=== PATIENT | female | born 1995 | race Caucasian/White ===

== ENCOUNTER 2016-10-14 02:15 | Emergency (ER) | payer SELFPAY ==
[2016-10-14 02:15] VITALS: BMI 26.2
[2016-10-14 02:32] VITALS: BP 125/71; PULSE 74; RESP 16; TEMP 98.1; O2SAT 100
[2016-10-14] MEDS ORDERED: Sodium Chloride 0.9% 1,000 ML IV STA (02:44)
--- NOTE | 2016-10-14 03:18 | ED PDOC ---
HPI: Abdomen Time Seen by Provider: 10/14/16 02:29 Chief Complaint (Nursing): Abdominal Pain History Per: Patient History/Exam Limitations: no limitations Onset/Duration Of Symptoms: Hrs Outside of [place] travel?: No Current Symptoms Are (Timing): Still Present Location Of Pain/Discomfort: Epigastric Quality Of Discomfort: Unable To Describe Additional Complaint(s): @ 4-8 wks (pt. unsure of last period) p/w epigastric pain and 3 episodes of vomiting, states she feels pain underneath ribs. 3 episodes of NBNB vomiting (food colored). normal stools. No lower abd pain, no fevers. No VB/ VD. Past Medical History Reviewed: Historical Data, Nursing Documentation, Vital Signs Vital Signs: Last Vital Signs Temp 98.1 F 10/14/16 02:27 Pulse 74 10/14/16 02:27 Resp 16 10/14/16 02:27 BP 125/71 10/14/16 02:27 Pulse Ox 100 10/14/16 03:19 - Medical History PMH: No Chronic Diseases, Kidney Stones, Chronic Kidney Disease - Family History Family History: States: No Known Family Hx - Immunization History Hx Tetanus Toxoid Vaccination: Yes Hx Influenza Vaccination: No Hx Pneumococcal Vaccination: No - Home Medications Home Medications: Ambulatory Orders Medication Instructions Recorded Nitrofurantoin Macrocrystals 100 mg PO BID #10 cap 02/13/13 [Macrobid] Phenazopyridine Hydrochlorid2 200 mg PO TID PRN #15 tab 07/06/14 [Pyridium] Sulfamethoxazole/Trimethopri 1 tab PO BID #10 tab 07/06/14 [Septra Ds 800 mg-160 mg] Amoxicillin 500 mg PO BID #14 capsule 11/09/15 Nitrofurantoin Macrocrystals 100 mg PO BID #14 cap 11/09/15 [Macrobid] - Allergies Allergies/Adverse Reactions: Allergies Allergy/AdvReac Type Severity Reaction Status Date / Time No Known Allergies Allergy Verified 07/06/14 00:10 Review of Systems ROS Statement: Except As Marked, All Systems Reviewed And Found Negative Gastrointestinal: Positive for: Nausea, Vomiting, Abdominal Pain Physical Exam - Reviewed Nursing Documentation Reviewed: Yes - Physical Exam Appears: Positive for: Well, Non-toxic, No Acute Distress Head Exam: Positive for: ATRAUMATIC, NORMAL INSPECTION, NORMOCEPHALIC Skin: Positive for: Normal Color, Warm, DRY Eye Exam: Positive for: EOMI, Normal appearance, PERRL ENT: Positive for: Normal ENT Inspection Neck: Positive for: Normal, Painless ROM Cardiovascular/Chest: Positive for: Regular Rate, Rhythm Respiratory: Positive for: CNT, Normal Breath Sounds Gastrointestinal/Abdominal: Positive for: Normal Exam, Bowel Sounds, Soft Back: Positive for: Normal Inspection Extremity: Positive for: Normal ROM Neurologic/Psych: Positive for: Alert, Oriented - Laboratory Results Result Diagrams: 10/14/16 03:00 10/14/16 03:00 - ECG O2 Sat by Pulse Oximetry: 100 Pulse Ox Interpretation: Normal Medical Decision Making Medical Decision Making: Preg, abd pain. Bedside sono shows IUP (patient explained that this is unofficial and will need confirmation from OB). Will check labs, give fluids/ reglan and reassess. 5AM: Labs wnl, told pt. to f/u in [facility] in 2 days for repeat testing. Return precautions given. Disposition - Clinical Impression Clinical Impression: Abdominal pain during - Disposition Referrals: [facility] [Outside] Disposition Time: 05:00 Condition: STABLE Additional Instructions: Followup in the clinic in 2 days for repeat blood testing and ultrasound. Instructions: Abdominal Pain in (ED)
[2016-10-14 03:27] LABS: BASO % 0.4 % (0.0-2.0); EOS % 0.2 % (0.0-4.0); HEMATOCRIT 37.8 % (34.0-47.0); LYMPH # 1.9 K/uL (1.0-4.3); LYMPH % 17.1 % (20.0-40.0); MEAN CELL VOLUME 81.5 fl (81.0-99.0); MEAN CORPUSCULAR HEMOGLOBIN 27.2 pg (27.0-31.0); MEAN CORPUSCULAR HGB CONC 33.4 g/dL (33.0-37.0); MEAN PLATELET VOLUME 10.1 fl (7.2-11.7); MONO # 0.8 K/uL (0.0-0.8); MONO % 6.9 % (0.0-10.0); NEUT # 8.3 K/uL (1.8-7.0); NEUT % 75.4 % (50.0-75.0); NRBC % 0.1 % (0.0-0.0); RBC URINE 4 /hpf (0-3); RED CELL DISTRIBUTION WIDTH 13.2 % (11.5-14.5); URINE BILIRUBIN NEGATIVE (NEGATIVE); URINE BLOOD NEGATIVE (NEGATIVE); URINE COLOR YELLOW (YELLOW); URINE GLUCOSE (UA) NEG (Normal); URINE KETONE NEGATIVE (NEGATIVE); URINE LEUKOCYTE ESTERASE SMALL Leu/uL (Negative); URINE PROTEIN NEGATIVE (NEGATIVE); URINE UROBILINOGEN 0.2-1.0 mg/dL (0.2-1.0); WBC URINE 1 /hpf (0-5)
[2016-10-14 03:36] LABS: BLOOD UREA NITROGEN 13 mg/dl (7-17); CALCIUM 9.5 mg/dL (8.4-10.2); CARBON DIOXIDE 23 mmol/L (22-30); CHLORIDE 106 mmol/L (98-107); GFR AFRICAN-AMERICAN > 60; GLUCOSE,RANDOM 78 mg/dL (65-105); POTASSIUM 3.8 MMOL/L (3.6-5.0); SODIUM 142 mmol/l (132-148)
== END 2016-10-14 04:30 | disposition home or self-care (01) ==
LOC: H.ER 02:15
DX: O99.89 Other specified diseases and conditions complicating pregnancy, childbirth and the puerperium (principal); O21.9 Vomiting of pregnancy, unspecified
CPT/HCPCS: 80048; 81003; 81025; 84702; 85025; 96361; 96374; 99282; J2765; J7040

== ENCOUNTER 2016-10-21 21:28 | Emergency (ER) | payer SELFPAY ==
[2016-10-21 21:33] VITALS: BMI 26.2
[2016-10-21 21:45] VITALS: RESP 16; TEMP 98.1
--- NOTE | 2016-10-21 21:57 | ED PDOC ---
HPI: Female Pain Time Seen by Provider: 10/21/16 21:55 Chief Complaint (Nursing): Female Genitourinary Chief Complaint (Provider): with vaginal spotting History Per: Patient Additional Complaint(s): 21-year-old female presents to emergency department with vaginal spotting that started yesterday. Patient is currently 7 weeks approximately. She denies any abdominal pain. Patient is also having thick yellow discharge for the past 2 days and is concerned about possible STD. She was treated one month ago for gonorrhea and chlamydia and her symptoms did go away but she is having similar symptoms again. Patient has had unprotected intercourse since previous exposure. She denies any fever or chills. Patient is (had 1 elective AB). Past Medical History Reviewed: Historical Data, Nursing Documentation, Vital Signs Vital Signs: Last Vital Signs Temp 98.1 F 10/21/16 21:40 Pulse 81 10/21/16 21:40 Resp 16 10/21/16 21:40 BP 115/60 10/21/16 21:40 Pulse Ox 99 10/21/16 21:40 - Medical History PMH: Kidney Stones - Surgical History Other surgeries: elective - Family History Family History: States: No Known Family Hx - Living Arrangements Living Arrangements: With Family - Social History Current smoker - smoking cessation education provided: No Alcohol: None Drugs: Denies - Home Medications Home Medications: Ambulatory Orders Medication Instructions Recorded Nitrofurantoin Macrocrystals 100 mg PO BID #10 cap 02/13/13 [Macrobid] Phenazopyridine Hydrochlorid2 200 mg PO TID PRN #15 tab 07/06/14 [Pyridium] Sulfamethoxazole/Trimethopri 1 tab PO BID #10 tab 07/06/14 [Septra Ds 800 mg-160 mg] Amoxicillin 500 mg PO BID #14 capsule 11/09/15 Nitrofurantoin Macrocrystals 100 mg PO BID #14 cap 11/09/15 [Macrobid] Nitrofurantoin Macrocrystals 100 mg PO BID #14 cap 10/22/16 [Macrobid] - Allergies Allergies/Adverse Reactions: Allergies Allergy/AdvReac Type Severity Reaction Status Date / Time No Known Allergies Allergy Verified 07/06/14 00:10 Review of Systems ROS Statement: Except As Marked, All Systems Reviewed And Found Negative Constitutional: Negative for: Fever, Chills Cardiovascular: Negative for: Chest Pain Respiratory: Negative for: Cough Gastrointestinal: Negative for: Nausea, Vomiting, Abdominal Pain, Diarrhea Genitourinary Female: Positive for: Vaginal Discharge, Vaginal Bleeding ( spotting), Other (approx 7 weeks ). Negative for: Dysuria, Frequency, Hematuria, Pelvic Pain Physical Exam - Reviewed Nursing Documentation Reviewed: Yes Vital Signs Reviewed: Yes - Physical Exam Appears: Positive for: Well, Non-toxic, No Acute Distress Head Exam: Positive for: ATRAUMATIC, NORMAL INSPECTION, NORMOCEPHALIC Neck: Positive for: Painless ROM Cardiovascular/Chest: Positive for: Regular Rate, Rhythm Respiratory: Positive for: Normal Breath Sounds. Negative for: Respiratory Distress Gastrointestinal/Abdominal: Positive for: Normal Exam, Soft. Negative for: Tenderness, Distended, Guarding, Rebound Back: Negative for: L CVA Tenderness, R CVA Tenderness Extremity: Negative for: Pedal Edema Neurologic/Psych: Positive for: Alert, Oriented - Laboratory Results Result Diagrams: 10/21/16 22:54 10/21/16 22:54 Urine POC: Positive Urine dip results: Positive for: Leukocyte Esterase (small). Negative for: Blood, Nitrate, Ketones, Glucose, Bilirubin, Protein - ECG O2 Sat by Pulse Oximetry: 99 Pulse Ox Interpretation: Normal - Other Rad OB TV US X-Ray: Read By Radiologist X-Ray Interpretation: see below Medical Decision Making Medical Decision Makin year female with vaginal discharge and spotting Plan: CBC CMP Beta quant UA and culture CHL and GC cultures OB TV US Empiric treatment for CHL and GC with 1 gram PO zithroimax and 250 gm IM rocephin US: FINDINGS: Gestation: A single intrauterine gestational sac is identified with a mean gestational sac size of 1.6 cm, corresponding to an approximate gestational age of 5 weeks and 6 days. A pole is detected, with the crown- rump length of 2.9 mm, corresponding to an approximate gestational age of 5 weeks and 6 days. cardiac activity is identified at a rate of 142 beats per minute. Placenta/amniotic fluid: Cannot be adequately evaluated due to the early gestational age. Uterus/cervix: As above. Ovaries: An anechoic focus is detected within the right ovary, measuring 18 mm in greatest dimension. The left ovary is unremarkable in echogenicity and size measuring 18 x 3.2 x 19 mm. Free fluid: No free fluid. IMPRESSION: Single intrauterine gestation with approximate gestational age of 5 weeks and 6 days. cardiac activity is identified. Right ovarian cyst. Patient aware of all diagnostic testing results, all questions answered. Blood type is A negative, rhogam given. Rx given for macrobid. Patient was referred to women's clinic for follow up. Disposition - Clinical Impression Clinical Impression: UTI (urinary tract infection), Vaginal discharge, STD (female), Threatened - Patient ED Disposition Is Patient to be Admitted: No Counseled Patient/Family Regarding: Studies Performed, Diagnosis, Need For Followup, Rx Given - Disposition Referrals: [facility] [Outside] Disposition: Routine/Home Disposition Time: 00:53 Condition: STABLE Additional Instructions: Take rx meds as directed. Refrain from intercourse until symptoms resolve. Follow up with women's clinic in 2-3 days. Prescriptions: Nitrofurantoin Macrocrystals [Macrobid] 100 mg PO BID #14 cap Instructions: Threatened Miscarriage (ED), Sexually Transmitted Diseases (ED), Urinary Tract Infection in Women (ED) Results - Lab Results Lab Results: 10/21/16 10/21/16 10/21/16 22:54 22:54 22:07 WBC 11.4 H RBC 4.46 Hgb 11.9 L Hct 36.5 MCV 81.7 MCH 26.6 L MCHC 32.6 L RDW 13.2 Plt Count 220 MPV 9.7 Neut % (Auto) 69.2 Lymph % (Auto) 21.8 [place] % (Auto) 8.0 Eos % (Auto) 0.4 Baso % (Auto) 0.6 Neut # 7.9 H Lymph # 2.5 [place] # 0.9 H Eos # 0.0 Baso # 0.1 Sodium 139 Potassium 4.0 Chloride 103 Carbon Dioxide 25 Anion Gap 14 BUN 14 Creatinine 0.7 Est GFR ( Amer) > 60 Est GFR (Non-Af Amer) > 60 Random Glucose 82 Calcium 9.3 Total Bilirubin 0.2 AST 19 ALT 22 Alkaline Phosphatase 43 Total Protein 7.4 Albumin 4.4 Globulin 2.9 Albumin/Globulin Ratio 1.5 Beta HCG, Quant 42086.00 Urine Color Yellow Urine Clarity Clear Urine pH 6.0 Ur Specific [place] 1.026 Urine Protein Negative Urine Glucose (UA) Neg Urine Ketones Negative Urine Blood Negative Urine Nitrate Negative Urine Bilirubin Negative Urine Urobilinogen 0.2-1.0 Ur Leukocyte Esterase Large Urine RBC (Auto) 9 H Urine Microscopic WBC 10 H Ur Squamous Epith Cells 4 Urine Bacteria Rare Hyaline Casts 0-2
[2016-10-21] MEDS ORDERED: cefTRIAXone (Rocephin) 250 mg Inj IM STA (22:10)
[2016-10-21 22:22] LABS: RBC URINE 9 /hpf (0-3); URINE BACTERIA RARE (<OCC); URINE BILIRUBIN NEGATIVE (NEGATIVE); URINE BLOOD NEGATIVE (NEGATIVE); URINE COLOR YELLOW (YELLOW); URINE GLUCOSE (UA) NEG (Normal); URINE KETONE NEGATIVE (NEGATIVE); URINE LEUKOCYTE ESTERASE LARGE Leu/uL (Negative); URINE PROTEIN NEGATIVE (NEGATIVE); URINE UROBILINOGEN 0.2-1.0 mg/dL (0.2-1.0); WBC URINE 10 /hpf (0-5)
[2016-10-21] MEDS ORDERED: Sterile Water 10 ML IV ONE (22:50)
[2016-10-21] MEDS ORDERED: cefTRIAXone (Rocephin) 250 mg Inj ONE (22:51)
[2016-10-21 22:58] LABS: BASO # 0.1 K/uL (0.0-0.2); BASO % 0.6 % (0.0-2.0); EOS % 0.4 % (0.0-4.0); HEMATOCRIT 36.5 % (34.0-47.0); LYMPH # 2.5 K/uL (1.0-4.3); LYMPH % 21.8 % (20.0-40.0); MEAN CELL VOLUME 81.7 fl (81.0-99.0); MEAN CORPUSCULAR HEMOGLOBIN 26.6 pg (27.0-31.0); MEAN CORPUSCULAR HGB CONC 32.6 g/dL (33.0-37.0); MEAN PLATELET VOLUME 9.7 fl (7.2-11.7); MONO # 0.9 K/uL (0.0-0.8); NEUT # 7.9 K/uL (1.8-7.0); NEUT % 69.2 % (50.0-75.0); RED CELL DISTRIBUTION WIDTH 13.2 % (11.5-14.5); WHITE BLOOD COUNT 11.4 K/uL (4.8-10.8)
[2016-10-21 23:06] LABS: ALB/GLOB RATIO 1.5 (1.0-2.1); ALKALINE PHOSPHATASE 43 U/L (38-126); ALT/SGPT 22 U/L (9-52); AST/SGOT 19 U/L (14-36); BILIRUBIN,TOTAL 0.2 mg/dl (0.2-1.3); BLOOD UREA NITROGEN 14 mg/dl (7-17); CALCIUM 9.3 mg/dL (8.4-10.2); CARBON DIOXIDE 25 mmol/L (22-30); CHLORIDE 103 mmol/L (98-107); GFR AFRICAN-AMERICAN > 60; GLUCOSE,RANDOM 82 mg/dL (65-105); SODIUM 139 mmol/l (132-148); TOTAL PROTEIN 7.4 G/DL (6.3-8.2)
--- NOTE | 2016-10-22 02:23 | US ---
EXAM: US , Transvaginal CLINICAL HISTORY: 21 years old, female; Signs and symptoms; Lmp or gestational age (in weeks): Lmp 09/10/2016; Other: Spotting; ; Additional info: with vaginal spotting TECHNIQUE: Real-time transvaginal obstetrical ultrasound of the maternal pelvis and a first trimester with image documentation. Transvaginal imaging was used for better evaluation of the fetus and adnexa. COMPARISON: No relevant prior studies available. FINDINGS: Gestation: A single intrauterine gestational sac is identified with a mean gestational sac size of 1.6 cm, corresponding to an approximate gestational age of 5 weeks and 6 days. A pole is detected, with the crown-rump length of 2.9 mm, corresponding to an approximate gestational age of 5 weeks and 6 days. cardiac activity is identified at a rate of 142 beats per minute. Placenta/amniotic fluid: Cannot be adequately evaluated due to the early gestational age. Uterus/cervix: As above. Ovaries: An anechoic focus is detected within the right ovary, measuring 18 mm in greatest dimension. The left ovary is unremarkable in echogenicity and size measuring 18 x 3.2 x 19 mm. Free fluid: No free fluid. IMPRESSION: Single intrauterine gestation with approximate gestational age of 5 weeks and 6 days. cardiac activity is identified. Right ovarian cyst.
[2016-10-22 03:43] VITALS: BP 117/71; PULSE 78; O2SAT 100
== END 2016-10-22 03:43 | disposition home or self-care (01) ==
LOC: H.ER 21:28
DX: O20.0 Threatened abortion (principal); O23.40 Unspecified infection of urinary tract in pregnancy, unspecified trimester; Z3A.01 Less than 8 weeks gestation of pregnancy; N83.201 Unspecified ovarian cyst, right side
CPT/HCPCS: 76817; 80053; 81003; 84702; 85025; 86850; 86900; 87070; 87086; 87491; 87591; 96372; 99282; J0696; J2792

== ENCOUNTER 2017-03-11 22:47 | Emergency (ER) | payer MEDICAID, OTHER ==
[2017-03-11 23:21] VITALS: BMI 29.5
[2017-03-12 04:39] VITALS: BP 110/59; PULSE 100; RESP 16; TEMP 98; O2SAT 100
--- NOTE | 2017-03-12 06:53 | OBHP ---
Datetime: 03/11/2017 23:50 IP Adm Impression: , intrauterine IP Admit Plan: Discharge home Admit Comment, IP Provider: 22 yo at 26.5w confirmed by u/s at 5.6weeks on 10/21/16 CC: vaginal spotting and increased fluid dischage. +FM. No contractions. Pt states she saw some bl ood, denies gush of fluid. Last visit: 03/01/17 @ [place], but patient is looking to switch to [facility] for pre-caio ca re. Only record pt has with her is u/s from 02/21 stating GA and breech presentation. 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 denies hx of pap smears. OBHX: denies Med Hx: denies Past Surg Hx: denies Allergies: NKDA Medications: PNV, but ran out ROS: no chest pain, shortness of breath, nausea, vomiting, dizziness, headache PE: BP 110/59 Gen: AAOx3, no acute distresss CV: S1,S2, RRR Resp: clear to auscultation bilaterally, normal effort Abd: gravid, +BS Genital: external exam wnl, no labial lesions. Speculum exam: os closed, moderate amount of thin, yellow-white discharge. No malodor. No blood visualized. Ectropion on cervix. Extremities: no edema, no tenderness to palpation. Assessment: 22 yo , possible vaginitis vs increased amount of discharge due to Not in pre-term labor. Plan: -Keep on monitor for 10 continuous minutes to watch FHR, then can be d/c home. -Prescription for refill pre- vitamins -Encouraged to follow up with OBGYN in clinic as soon as possible -[email or web address] ob attending addendum: Patient seen and examined by me. Patient states she presents today for evaluation of vaginal leaka ge of discharge. She denies pruritus and states there is mild odor to her discharge. She states when she presented to [facility] that she was receiving care is given a prescription for miconazole a nd for yeast infection and states that at that time she was she was not given a pelvic examination. S he stopped taking the miconazole 2 days ago after noticing vaginal spotting. She states a vaginal s potting was initially red and then brown and has resolved. She denies gush of fluid or rupture of mem branes. I:26.5wks Vaginal Discharge appears physiologic P: f/u with ob provider for further eval of d/c Extremities - PN: Normal Abdomen - PN: Normal Lungs - PN: Normal Heart - PN: Normal Thyroid - PN: Not Done Neurologic - PN: Not Done HEENT - PN: Normal General - PN: Normal Presentation-Admit: Breech FHR - Baseline A Provider: 152 Comments, ACOG Physical Exam: os closed. moderate yellow-white, thin discharge seen; etiology of dis charge unclear but unlikely fungal in nature. Ectropion on cervix. discharge is odorless Gestation - Est Wks by US: 26.5 Vital Signs Provider: Reviewed IP Chief Complaint: Vaginal bleeding; Maternal discomfort NICHD Variability Prov Fetus A: Moderate 6-25bpm NICHD Accel Fetus A IP Provider: [id number] FHR Category Provider Fetus A: Category I Dilatation, Provider: 0 Genitourinary Exam: Normal DTRs - PN: Not Done
== END 2017-03-12 00:18 | disposition home or self-care (01) ==
LOC: H.EROB2 22:47
DX: O47.03 False labor before 37 completed weeks of gestation, third trimester (principal); Z3A.26 26 weeks gestation of pregnancy; O26.92 Pregnancy related conditions, unspecified, second trimester; N89.8 Other specified noninflammatory disorders of vagina

== ENCOUNTER 2017-04-23 10:58 | Emergency (ER) | payer MEDICAID, OTHER ==
[2017-04-23 10:59] VITALS: BMI 29.5
[2017-04-23] MEDS ORDERED: Sodium Chloride 0.9% 1,000 ML IV STA (11:30)
--- NOTE | 2017-04-23 12:31 | RAD ---
HISTORY: cough COMPARISON: 09/22/2015. TECHNIQUE: Chest PA and lateral FINDINGS: LUNGS: No active pulmonary disease. PLEURA: No significant pleural effusion identified. No pneumothorax apparent. CARDIOVASCULAR: Normal. OSSEOUS STRUCTURES: No significant abnormalities. VISUALIZED UPPER ABDOMEN: Normal. OTHER FINDINGS: None. IMPRESSION: No active disease. No significant interval change compared to the prior examination(s).
--- NOTE | 2017-04-23 12:37 | ED PDOC ---
HPI: CCC, URI, Sore Throat Time Seen by Provider: 04/23/17 11:22 Chief Complaint (Nursing): Chest Pain Chief Complaint (Provider): cough History Per: Patient History/Exam Limitations: no limitations Have you had recent travel within the past 21 days to any of the following countries: [place], [place], [place] or [place]?: No Onset/Duration Of Symptoms: Days (3) Current Symptoms Are (Timing): Still Present Associated Symptoms: Fever, Chills, Sore Throat, Cough, Sputum, Sinus Drainage, Myalgias, Nasal Congestion. denies: Neck Pain, Vomiting, Diarrhea Ear Symptoms: Bilateral: None Severity: Moderate Additional History Per: Patient (32weeks . no vaginal bleeding, no pelvic cramping. ) Past Medical History Reviewed: Historical Data, Nursing Documentation, Vital Signs Vital Signs: Last Vital Signs Temp Pulse 81 04/23/17 11:25 Resp 19 04/23/17 11:09 BP 95/55 L 04/23/17 11:25 Pulse Ox 100 04/23/17 11:24 - Medical History PMH: Kidney Stones, Chronic Kidney Disease - Family History Family History: States: No Known Family Hx - Immunization History Hx Tetanus Toxoid Vaccination: No Hx Influenza Vaccination: No Hx Pneumococcal Vaccination: No - Home Medications Home Medications: Ambulatory Orders Medication Instructions Recorded Vit Calc,Iron,Folic 1 tab PO DAILY 03/12/17 [ Vitamins] Oseltamivir Phosphate [Tamiflu] 75 mg PO BID #10 capsule 04/23/17 - Allergies Allergies/Adverse Reactions: Allergies Allergy/AdvReac Type Severity Reaction Status Date / Time No Known Allergies Allergy Verified 03/11/17 23:21 Review of Systems ROS Statement: Except As Marked, All Systems Reviewed And Found Negative Constitutional: Positive for: Fever Respiratory: Positive for: Cough, Sputum Physical Exam - Reviewed Nursing Documentation Reviewed: Yes Vital Signs Reviewed: Yes - Physical Exam Appears: Positive for: Non-toxic, No Acute Distress, Uncomfortable Head Exam: Positive for: ATRAUMATIC, NORMAL INSPECTION, NORMOCEPHALIC Skin: Positive for: Normal Color, Warm, DRY Eye Exam: Positive for: Normal appearance, EOMI, PERRL ENT: Positive for: Normal ENT Inspection Neck: Positive for: Normal, Painless ROM Cardiovascular/Chest: Positive for: Regular Rate, Rhythm Respiratory: Positive for: CNT, Normal Breath Sounds Gastrointestinal/Abdominal: Positive for: Normal Exam, Bowel Sounds, Soft. Negative for: Tenderness Neurologic/Psych: Positive for: Alert, Oriented - ECG O2 Sat by Pulse Oximetry: 100 - Radiology X-Ray: Interpreted by Me, Read By Radiologist X-Ray Interpretation: No Acute Disease - Progress ED Course And Treament: Orders Category Date Time Status EKG [ELECTROCARDIOGRAM] Stat Cardiology 04/23/17 11:21 Ordered EKG-ED [EDNURTX] STAT ED Care 04/23/17 11:21 Active CHEST TWO VIEWS (PA/LAT) [RAD] Stat Exams 04/23/17 11:30 Taken Acetaminophen [Tylenol 325mg tab] Med 04/23/17 11:55 Discontinued 650 mg .ROUTE .STK-MED ONE Acetaminophen [Tylenol 325mg tab] Med 04/23/17 11:30 Discontinued 650 mg PO STAT STA Sodium Chloride 0.9% 1,000 ml Med 04/23/17 11:30 Active IV 1,000 mls/hr THROAT CULTURE Stat Micro 04/23/17 11:54 Received INFLUENZA A B Stat Serology 04/23/17 11:54 Completed RAPID STREP GROUP A ANTIGEN Stat Serology 04/23/17 11:54 Completed Re-evaluation Time: 12:37 Medical Decision Making Medical Decision Making: pt presents with flu like symptoms. pt is 32 weeks will treat with tamilflu pt is high rsik. 04/23/17 04/23/17 11:54 11:54 Influenza Typ A,B (EIA) Negative for flu a/b Grp A Beta Strep Ag Negative Disposition - Clinical Impression Clinical Impression: Influenza-like symptoms - Patient ED Disposition Is Patient to be Admitted: No Counseled Patient/Family Regarding: Need For Followup - Disposition Disposition: Routine/Home Disposition Time: 12:43 Condition: STABLE Prescriptions: Oseltamivir Phosphate [Tamiflu] 75 mg PO BID #10 capsule Instructions: Influenza (ED)
[2017-04-23 13:02] VITALS: BP 122/73; PULSE 80; RESP 18; TEMP 98.2; O2SAT 99
--- NOTE | 2017-04-24 08:32 | CARD ---
APPROVED REPORT EKG Measurement Heart [id number] <Conclusion> Sinus tachycardia Otherwise normal ECG
== END 2017-04-23 13:03 | disposition home or self-care (01) ==
LOC: H.ER 10:58
DX: R05 Cough (principal); J02.9 Acute pharyngitis, unspecified; R09.81 Nasal congestion; M79.1 Myalgia; Z87.442 Personal history of urinary calculi
CPT/HCPCS: 71020; 87070; 87430; 87804; 93005; 99283; J7040

== ENCOUNTER 2017-06-01 20:08 | Emergency (ER) | payer OTHER ==
[2017-06-01 20:51] VITALS: BMI 30.7
[2017-06-02 05:46] VITALS: BP 106/62; PULSE 103; RESP 18; TEMP 98.2; O2SAT 100
--- NOTE | 2017-06-02 08:19 | OBHP ---
Datetime: 06/01/2017 21:00 IP Adm Impression: Term, intrauterine IP Admit Plan: Discharge home Admit Comment, IP Provider: 22 y/o F at 38 weeks GA, c/o decreased movements and LOF. Pt explains not feeling her baby move since early yesterday and having small amount of yellow discharge and fluid from vagina. No VB or CTX. Pt denies headache, fever, visual disturbances, CP, SOB, N/V, urinary complaints or pruritus. NKDA Meds: PNV PNC clinic: [facility] with Dr Cast. PN labs: record not available. PMHX: denied PSHx: denied. FHx: NC SHx: No tobacco, alcohol or rec drugs. A/P 22 y/o F with IUP at 38 weeks GA, NOT in active labor. -FHT monitoring for 20-40 minutes. -If FHT reactive and reassuring, discharge home. -Labor precautions discussed with pt. Case discussed with DR Velazquez, OB adoption coordinator Malick PGY-1. Addendum: I Examined Patient Presentation. No Evidence of Labor at This Time. Patient Discharged Home with L abor Precautions. Discussed Palpation All Patient Questions Answered. Abdomen - PN: Normal Back - PN: Normal Lungs - PN: Normal Heart - PN: Normal Thyroid - PN: Normal Neurologic - PN: Normal HEENT - PN: Normal General - PN: Normal FHR - Baseline A Provider: 130s Gestation - Est Wks by US: 38.0 EGA AdmitDate IP: 38.0 Vital Signs Provider: Reviewed IP Chief Complaint: Suspected ruptured membranes NICHD Variability Prov Fetus A: Moderate 6-25bpm NICHD Accel Fetus A IP Provider: [id number] FHR Category Provider Fetus A: Category I Dilatation, Provider: closed Effacement, Provider: thick Station, Provider: high Datetime: 03/11/2017 23:50 Pool Provider: Negative
== END 2017-06-01 21:40 | disposition home or self-care (01) ==
LOC: H.EROB2 20:08 → H.EROB 21:03 → H.EROB2 21:40
DX: O47.1 False labor at or after 37 completed weeks of gestation (principal); Z3A.38 38 weeks gestation of pregnancy; O36.8130 Decreased fetal movements, third trimester, not applicable or unspecified

== ENCOUNTER 2017-06-10 19:23 | Inpatient (IN) | payer OTHER ==
[2017-06-10 19:50] VITALS: BMI 30.9
--- NOTE | 2017-06-10 20:14 | OBADHP ---
Datetime: 06/10/2017 20:07 Admit Comment, IP Provider: at 39 weeks and 2 days gestational age complains of gush of flu id at 7:30 PM. She denies any contractions or vaginal bleeding. Patient reports good movement. Otherwise, patient without complaints. records reviewed. Past medical history none Past surgical history none Patient's vitamins No known drug allergies Obstetrical history 010 first trimester loss of 1 Social history no tobacco, no drugs, no alcohol Physical exam: Refer to physical exam findings Assessment: 010 at 39 weeks gestational age with spontaneous rupture of membranes. Both maternal well-be ing and well-being reassuring at this time. Plan: Admit to labor and delivery for management Both maternal being and being reassuring at this time. Pelvic Type - PN: Adequate Extremities - PN: Normal Abdomen - PN: Normal Back - PN: Normal Breast - PN: Normal Lungs - PN: Normal Heart - PN: Normal Thyroid - PN: Normal Neurologic - PN: Normal HEENT - PN: Normal General - PN: Normal Membranes, Provider: Dodie Spivey ACOG Physical Exam: Estimated weight 7 pounds Sterile speculum exam: Grossly ruptured on exam Cervix: 1 cm, long, posterior Bedside ultrasound: Cephalic Pool Provider: Positive Vital Signs Provider: Reviewed; Within Normal Limits IP Chief Complaint: Suspected ruptured membranes Dilatation, Provider: 1 Effacement, Provider: long Station, Provider: high Genitourinary Exam: Normal DTRs - PN: Normal IP Adm Impression: Term, intrauterine ; No Active Labor; Ruptured Membranes IP Admit Plan: Admit to unit; Initiate labor protocol Datetime: 06/01/2017 21:00 FHR - Baseline A Provider: 130s Gestation - Est Wks by US: 38.0 NICHD Variability Prov Fetus A: Moderate 6-25bpm NICHD Accel Fetus A IP Provider: [id number] FHR Category Provider Fetus A: Category I Datetime: 03/11/2017 23:50 Presentation-Admit: Breech
[2017-06-10 20:35] VITALS: O2SAT 100
[2017-06-10 21:07] LABS: BASO % 0.2 % (0.0-2.0); EOS % 0.1 % (0.0-4.0); HEMOGLOBIN 9.6 g/dL (12.0-16.0); LYMPH # 1.3 K/uL (1.0-4.3); LYMPH % 11.8 % (20.0-40.0); MEAN CELL VOLUME 75.7 fl (81.0-99.0); MEAN CORPUSCULAR HEMOGLOBIN 24.4 pg (27.0-31.0); MEAN CORPUSCULAR HGB CONC 32.2 g/dL (33.0-37.0); MEAN PLATELET VOLUME 10.5 fl (7.2-11.7); MONO # 0.8 K/uL (0.0-0.8); MONO % 7.6 % (0.0-10.0); NEUT # 8.6 K/uL (1.8-7.0); NEUT % 80.3 % (50.0-75.0); RBC 3.94 Mil/uL (3.80-5.20); RED CELL DISTRIBUTION WIDTH 14.4 % (11.5-14.5); WHITE BLOOD COUNT 10.7 K/uL (4.8-10.8)
[2017-06-11] MEDS ORDERED: Nalbuphine 20 mg/ml Inj (1 ml) IVP PRN (01:57)
[2017-06-11] MEDS: Lactated Ringer's 2,000 ML IV SCH ×2 (04:22→04:45)
[2017-06-11] MEDS ORDERED: Fentanyl/Bupivacaine HCl 250 ML EPI ONE (05:02)
[2017-06-11] MEDS ORDERED: Lactated Ringer's 1,000 ML IV SCH (06:15)
[2017-06-11] MEDS ORDERED: Oxytocin 30 UNITS in Sodium Chloride 0.9% 500 ML IV ONE (06:48)
--- NOTE | 2017-06-11 07:20 | OBPN ---
Datetime: 06/11/2017 06:30 IP Progress Impression: Reassuring heart rate; Rupture of membranes IP Informed Consent Obtain: Vaginal Delivery; Risks, Benefits and Alternatives Discussed IP Progress Plan: Augmentation Membranes, Provider: Ruptured FHR - Baseline A Provider: 130 Presentation-Admit: Vertex IP Progress Note Comment: She had CTX pain 2:30am after first dose of Cytotec. She was 3cm at 4:30am, rec'd epidural. Also, Blood type was Rh neg today. She had initial care at [facility]. Not given Rhogam 28 w A; IUP at 39w latent phase of labor PLAN: will start pitocin augmentation - discussed with pt NICHD Accel Fetus A IP Provider: [id number] FHR Category Provider Fetus A: Category I NICHD Variability Prov Fetus A: Moderate 6-25bpm Dilatation, Provider: 3 NICHD Decel Fetus A IP Provider: None Datetime: 06/10/2017 20:07 Pool Provider: Positive Vital Signs Provider: Reviewed; Within Normal Limits Effacement, Provider: long Station, Provider: high Datetime: 06/01/2017 21:00 Gestation - Est Wks by US: 38.0
[2017-06-11] MEDS: Oxytocin 30 UNITS in Sodium Chloride 0.9% 500 ML IV SCH ×2 (07:45→15:54)
[2017-06-11] MEDS ORDERED: Lidocaine 1% Inj (20ml) ONE (14:50)
--- NOTE | 2017-06-11 16:24 | OBDS ---
MATERNAL INFORMATION Provider Comments: of live male 3600gms, 9/9 over intact perineum followed by shoulders and rest of infant atraumatically, mouth and nose suctioned, cord clamped and cut, cord blood obtain ed, placenta delivered spontaneously, fundus firm, [id number], bilateral labial abrasions repaired wit h 3-0 vicryl rapide LABOR SUMMARY EDC: 06/15/2017 00:00 No. Babies in Womb: 1 LABOR INFORMATION Cervical Ripening Agents: Cytotec @ 25 Group B Beta Strep: unknown MEMBRANES Membranes Rupture Method: Spontaneous Rupture of Membranes: 06/10/2017 19:00 Amniotic Fluid Color: Clear Amniotic Fluid Amount: Moderate Amniotic Fluid Odor: Normal
[2017-06-11] MEDS ORDERED: Benzocaine/Menthol SPRAY TOP PRN ×2 (16:25→17:57)
[2017-06-11] MEDS ORDERED: Oxycodone/Acetaminophen 5/325 mg Tab PO PRN (16:25)
[2017-06-12 06:06] LABS: BASO % 0.2 % (0.0-2.0); EOS % 0.1 % (0.0-4.0); HEMOGLOBIN 8.4 g/dL (12.0-16.0); LYMPH # 1.8 K/uL (1.0-4.3); LYMPH % 13.7 % (20.0-40.0); MEAN CELL VOLUME 75.6 fl (81.0-99.0); MEAN CORPUSCULAR HEMOGLOBIN 24.2 pg (27.0-31.0); MEAN PLATELET VOLUME 10.2 fl (7.2-11.7); MONO # 1.3 K/uL (0.0-0.8); NEUT # 10.1 K/uL (1.8-7.0); RBC 3.46 Mil/uL (3.80-5.20); RED CELL DISTRIBUTION WIDTH 14.4 % (11.5-14.5); WHITE BLOOD COUNT 13.3 K/uL (4.8-10.8)
--- NOTE | 2017-06-12 07:36 | NBPN ---
Datetime: 06/12/2017 07:33 Nsy Prov Gen Appearance: Within Normal Limits Nsy Prov Skin: Within Normal Limits Nsy Prov Neuro: Normal Tone; Mary Ann; Grasp; Root; Suck Nsy Prov Musculoskeletal: Within Normal Limits; Full Range of Motion; Spontaneous Movement All Extre mities; Intact Clavicles; Clavicles without Crepitus; Gluteal Folds Symmetrical; Spine Within Normal Limits; No Sacral Dimple/Cyst Nsy Prov Head: Normal Fontanelles; Normocephalic; Sutures WNL Nsy Prov EENT: Mouth Within Normal Limits; Ears Within Normal Limits; Eyes Within Normal Limits; Eye s Red Reflex Bilaterally; Nose Within Normal Limits; Face Within Normal Limits Nsy Prov Cardiovascular: Within Normal Limits; Normal Pulses Nsy Prov Respiratory: Within Normal Limits Nsy Prov GI: Within Normal Limits; Soft; Normal Liver; Non Palpable Spleen; Patent Anus Nsy Prov Umbilicus: Within Normal Limits; Three Vessel Cord Nsy Prov : Normal Male Genitalia Nsy Prov Impression: Healthy Term ; Vital Signs Appropriate; Bonding Appropriately; Voiding a nd Stooling Nsy Prov Plan: Continue Moro Care Nsy Prov Impression/Plan Details: Well baby boy.
[2017-06-12] MEDS: Multivitamin With Minerals Tab PO SCH (08:35)
--- NOTE | 2017-06-12 08:53 | OBPPN ---
Datetime: 06/12/2017 08:42 PP Pain Prov: Within normal limits PP Abdomen/Uterus Prov: Normal PP Lochia Prov: Normal PP Vulva/Perineum Prov: Not Done PP Extremities Prov: Normal PP Progress Prov: Not Applicable PP Impression Prov: Normal progression PP Plan Prov: Continue present management PP Progress Note Prov: PPD 1 s/p , doing well, bottle feeding Continue current care Vital Signs Provider PP: Reviewed; Within Normal Limits
[2017-06-12] MEDS ORDERED: Multivitamin With Minerals Tab PO SCH (09:00)
[2017-06-13] MEDS: Multivitamin With Minerals Tab PO SCH (09:28)
[2017-06-13 16:41] VITALS: BP 133/80; PULSE 88; RESP 20; TEMP 97.5
== END 2017-06-13 11:54 | disposition home or self-care (01) | DRG 373 ==
LOC: H.EROB2 19:23 → H.L&D 20:09 → H.OB/GYN 06-11 18:49
PROVIDERS: ADMIT Obstetrics & Gynecology Gynecology; ATTEND Obstetrics & Gynecology Gynecology
PROC: 3E0234Z Introduction of Serum, Toxoid and Vaccine into Muscle, Percutaneous Approach (ICD-10-PCS; 2017-06-10)
PROC: 4A1HXCZ Monitoring of Products of Conception, Cardiac Rate, External Approach (ICD-10-PCS; 2017-06-10)
PROC: 10E0XZZ Delivery of Products of Conception, External Approach (ICD-10-PCS; principal; 2017-06-11)
DX: O36.0930 Maternal care for other rhesus isoimmunization, third trimester, not applicable or unspecified (principal); Z37.0 Single live birth; Z3A.39 39 weeks gestation of pregnancy

== ENCOUNTER 2017-10-27 01:06 | Emergency (ER) | payer MEDICAID, OTHER ==
[2017-10-27 01:06] VITALS: BMI 30.9
[2017-10-27 01:21] VITALS: BP 110/77; PULSE 93; RESP 17; TEMP 97.7; O2SAT 98
--- NOTE | 2017-10-27 04:01 | ED PDOC ---
Upper Extremity Pain/Injury Time Seen by Provider: 10/27/17 01:17 Chief Complaint (Nursing): Finger,Hand,&Wrist History Per: Patient History/Exam Limitations: no limitations Additional Complaint(s): 22 yo F reports injury to her R 4th digit, when she fell a few days ago. Since then has pain and swelling. Denies any decrease in ROM, numbness or any other injury, has no other complaints. Past Medical History Vital Signs: Last Vital Signs Temp 97.7 F 10/27/17 01:11 Pulse 93 H 10/27/17 01:11 Resp 17 10/27/17 01:11 BP 110/77 10/27/17 01:11 Pulse Ox 98 10/27/17 01:11 - Medical History PMH: Kidney Stones, Chronic Kidney Disease - Family History Family History: States: No Known Family Hx - Immunization History Hx Tetanus Toxoid Vaccination: No Hx Influenza Vaccination: No Hx Pneumococcal Vaccination: No - Home Medications Home Medications: Ambulatory Orders Medication Instructions Recorded Vit Calc,Iron,Folic 1 tab PO DAILY 03/12/17 [ Vitamins] - Allergies Allergies/Adverse Reactions: Allergies Allergy/AdvReac Type Severity Reaction Status Date / Time No Known Allergies Allergy Verified 06/01/17 20:51 Review of Systems Constitutional: Negative for: Fever, Malaise Musculoskeletal: Positive for: Hand Pain (injury to the R 4th digit). Negative for: Neck Pain, Back Pain Skin: Negative for: Rash, Lesions Physical Exam - Reviewed Vital Signs Reviewed: Yes - Physical Exam Appears: Positive for: Well, Non-toxic, No Acute Distress Skin: Positive for: Normal Color, Warm, Dry Pulses-Radial (R): 2+ Extremity: Positive for: Normal ROM, Capillary Refill (<2sec), Other (+mild tenderness and mild edema, with no ecchymosis to the R 4th digit, +FROM, distal sensation intact). Negative for: Deformity - ECG O2 Sat by Pulse Oximetry: 98 Medical Decision Making Medical Decision Making: Impression : finger sprain, r/o fracture Plan : - XR R hand XR R hand : no fracture, no dislocation, as read by PA. X-ray results discussed with the patient in great detail. Finger splint applied. Neurovascular intact post splint application. Patient instructed to follow-up with pmd in 1-2 days without fail. Rest, ice and elevate the joint. Return to the emergency room at any time for any new or worsening symptoms. Patient states she fully agrees with and understands discharge instructions. States that she agrees with the plan and disposition. Verbalized and repeated discharge instructions and plan. I have given the patient opportunity to ask any additional questions. Disposition - Clinical Impression Clinical Impression: Finger sprain - Patient ED Disposition Is Patient to be Admitted: No Counseled Patient/Family Regarding: Studies Performed, Diagnosis, Need For Followup - Disposition Disposition: Routine/Home Disposition Time: 03:45 Condition: STABLE Additional Instructions: Thank you for letting us take care of you today. You were treated for finger sprain. The emergency medical care you received today was directed at your acute symptoms. Rest, ice and elevate your finger, take over the counter motrin as needed for pain. It may take several days for your symptoms to resolve. Return to the Emergency Department if your symptoms worsen, do not improve, or if you have any other problems. Please contact your doctor in 2 days for re-evaluation and follow up. Bring any paperwork you were given at discharge with you along with any medications you are taking to your follow up visit. Our treatment cannot replace ongoing medical care by a primary care provider (PCP) outside of the emergency department. Thank you for allowing the [facility] team to be part of your care today. If you had an X-Ray : A Radiologist will review the ED reading if any change in treatment is needed we will contact you. Instructions: Finger Sprain (DC) - PA / OXYGRAPH OPERATOR / Resident Statement / has reviewed & agrees with the documentation as recorded.
--- NOTE | 2017-10-27 08:40 | RAD ---
PROCEDURE: Right ring finger radiographs. HISTORY: Pain COMPARISON: None. TECHNIQUE: AP radiograph of the right hand, as well as spot oblique and lateral images of ring finger were obtained. FINDINGS: RIGHT RING FINGER: Normal right ring finger, without acute fracture or focal lesion. Remainder of the right hand (as seen on the AP view) grossly unremarkable. JOINTS: Normal. SOFT TISSUES: Normal. OTHER FINDINGS: None. IMPRESSION: No acute displaced fracture or dislocation.
== END 2017-10-27 04:31 | disposition home or self-care (01) ==
LOC: H.ER 01:06
DX: S63.614A Unspecified sprain of right ring finger, initial encounter (principal); W19.XXXA Unspecified fall, initial encounter; Z87.442 Personal history of urinary calculi; N18.9 Chronic kidney disease, unspecified

== ENCOUNTER 2018-04-26 17:56 | Emergency (ER) | payer MEDICAID, OTHER ==
[2018-04-26 17:56] VITALS: BMI 30.9
[2018-04-26 18:04] VITALS: BP 115/75; PULSE 95; RESP 18; TEMP 98; O2SAT 99
[2018-04-26] MEDS ORDERED: Dexamethasone 4 mg/1 ml IM STA (18:58)
--- NOTE | 2018-04-26 19:03 | ED PDOC ---
HPI: CCC, URI, Sore Throat Time Seen by Provider: 04/26/18 18:29 Chief Complaint (Nursing): ENT Problem Chief Complaint (Provider): Throat Pain, Fever History Per: Patient History/Exam Limitations: no limitations Have you had recent travel within the past 21 days to any of the following countries: [place], [place], [place] or [place]?: No Onset/Duration Of Symptoms: Days (since last night) Current Symptoms Are (Timing): Still Present Location Of Pain: Throat Sick Contacts (Context): Family Member(s) (son) Associated Symptoms: Fever, Sore Throat Additional Complaint(s): Patient is a 23 year old female who presents for evaluation of a sore throat and fever since last night, Tmax 102.7 oral. Patient also reports nasal congestion, pain with swallowing, and body aches. Patient has a history of recurrent strep throat infections and states her current symptoms feel similar. Patient states she took Ibuprofen 400mg PO at 4pm today. No other complaints at present. PMD: None LMP: 03/25/18 Past Medical History Reviewed: Historical Data, Nursing Documentation, Vital Signs Vital Signs: Last Vital Signs Temp 98 F 04/26/18 18:02 Pulse 95 H 04/26/18 18:02 Resp 18 04/26/18 18:02 BP 115/75 04/26/18 18:02 Pulse Ox 99 04/26/18 18:02 - Medical History PMH: Kidney Stones Other PMH: strep pharyngitis - Surgical History Surgical History: No Surg Hx - Family History Family History: States: Unknown Family Hx - Living Arrangements Living Arrangements: With Family - Home Medications Home Medications: Ambulatory Orders Medication Instructions Recorded Vit Calc,Iron,Folic 1 tab PO DAILY 03/12/17 [ Vitamins] Acetaminophen [Acetaminophen 8 650 mg PO Q8 PRN #21 tablet.er 04/26/18 Hour] Amoxicillin 875 mg PO BID #14 tablet 04/26/18 Naproxen 500 mg PO BID PRN #20 tab 04/26/18 - Allergies Allergies/Adverse Reactions: Allergies Allergy/AdvReac Type Severity Reaction Status Date / Time No Known Allergies Allergy Verified 04/26/18 18:02 Review of Systems ROS Statement: Except As Marked, All Systems Reviewed And Found Negative Constitutional: Positive for: Fever ENT: Positive for: Throat Pain Physical Exam - Reviewed Nursing Documentation Reviewed: Yes Vital Signs Reviewed: Yes - Physical Exam Appears: Positive for: Well, Non-toxic, No Acute Distress Head Exam: Positive for: ATRAUMATIC, NORMOCEPHALIC Skin: Positive for: Normal Color, Warm, Dry Eye Exam: Positive for: EOMI, PERRL ENT: Positive for: Pharynx Is (clear, uvula midline), TM Is/Are (nonbulging and nonerythematous), Nasal Congestion, Pharyngeal Erythema, Tonsillar Exudate (bilateral), Tonsillar Swelling (3+). Negative for: Sinus Pain/Drainage Neck: Positive for: Painless ROM ((+) anterior cervical lymphadenopathy), Supple Cardiovascular/Chest: Positive for: Regular Rate, Rhythm Respiratory: Positive for: Normal Breath Sounds Extremity: Positive for: Normal ROM. Negative for: Deformity Neurologic/Psych: Positive for: Alert, Oriented (x3), Gait (steady in ED). Negative for: Aphasia, Facial Droop - Laboratory Results Urine POC: Negative Urine dip results: Positive for: Leukocyte Esterase (small). Negative for: Blood, Nitrate, Ketones, Glucose, Bilirubin, Protein - ECG O2 Sat by Pulse Oximetry: 99 (RA) Pulse Ox Interpretation: Normal Medical Decision Making Medical Decision Makin Initial Impression: Tonsillitis, Bodyaches Plan: -Urine Preg -Urine Dipstick -Decadron 10mg IM -Tylenol 650mg PO -Amoxicillin 500mg PO -Re-evaluation 1914 Udip reviewed, U/A and U/C ordered. Upreg: negative 1934 Rapid Strep: Negative Pending U/A. 2024 U/A (+) trace leukocytes with presence of squamous epithelial, probable contamination - U/C pending. On re-evaluation, patient reports improvement of symptoms. On exam, patient remains AAOx3, in no acute distress. Lungs clear to auscultation, cardiac RRR, repeat neuro exam shows no focal findings. Vitals stable. Lab/Diagnostic results d/w the patient in great detail. Diagnosis of tonsillitis d/w the patient. Based on history, exam and diagnostic results, plan will be for outpatient follow up with clinic/ENT. Patient instructed to follow-up with pmd / referral provided / the clinic in 1- 2 days without fail. Advised to take medication as prescribed. Return to the emergency room at any time for any new or worsening symptoms. Patient states she fully agrees with and understands discharge instructions. States that she agrees with the plan and disposition. Verbalized and repeated discharge instructions and plan. I have given the patient opportunity to ask any additional questions. Disposition - Clinical Impression Clinical Impression: Tonsillitis, Throat pain in adult, Fever - Patient ED Disposition Is Patient to be Admitted: No Counseled Patient/Family Regarding: Studies Performed, Diagnosis, Need For Followup, Rx Given - Disposition Referrals: Pj Owens MD [Staff Provider] - [facility] [Outside] Disposition: Routine/Home Disposition Time: 20:25 Condition: STABLE Additional Instructions: The emergency medical care you received today was directed at your acute symptoms. If you were prescribed any medication, please fill it and take as directed. It may take several days for your symptoms to resolve. Return to the Emergency Department if your symptoms worsen, do not improve, or if you have any other problems. Please contact your doctor in 2 days for re-evaluation and follow up / or call one of the physicians/clinics you have been referred to that are listed on the Patient Visit Information form that is included in your discharge packet. Bring any paperwork you were given at discharge with you along with any medications you are taking to your follow up visit. Our treatment cannot replace ongoing medical care by a primary care provider (PCP) outside of the emergency department. Prescriptions: Acetaminophen [Acetaminophen 8 Hour] 650 mg PO Q8 PRN #21 tablet.er PRN Reason: Fever >100.4 F Amoxicillin 875 mg PO BID #14 tablet Naproxen 500 mg PO BID PRN #20 tab PRN Reason: Pain, Moderate (4-7) Instructions: Sore Throat in Adults, Fever, Adult (DC), When to Worry About a Fever Forms: [employer] (Croatian), [facility] ED School/Work Excuse Print Language: MOROCCAN - POA Present On Arrival: None Results - Lab Results Lab Results: 04/26/18 04/26/18 19:43 19:10 Urine Color Yellow Urine Clarity Slighty-cloudy Urine pH 6.0 Ur Specific [place] 1.020 Urine Protein Negative Urine Glucose (UA) Neg Urine Ketones Negative Urine Blood Negative Urine Nitrate Negative Urine Bilirubin Negative Urine Urobilinogen 0.2-1.0 Ur Leukocyte Esterase Trace Urine RBC (Auto) < 1 Urine Microscopic WBC 6 H Ur Squamous Epith Cells 2 Grp A Beta Strep Ag Negative
[2018-04-26 20:03] LABS: URINE BILIRUBIN NEGATIVE (NEGATIVE); URINE BLOOD NEGATIVE (NEGATIVE); URINE CLARITY SLIGHTY-CLOUDY (Clear); URINE COLOR YELLOW (YELLOW); URINE GLUCOSE (UA) NEG (Normal); URINE LEUKOCYTE ESTERASE TRACE Leu/uL (Negative); URINE PROTEIN NEGATIVE (NEGATIVE); URINE UROBILINOGEN 0.2-1.0 mg/dL (0.2-1.0)
[2018-04-26 20:18] LABS: SQUAMOUS EPITHIAL 2 /hpf (0-5)
== END 2018-04-26 20:39 | disposition home or self-care (01) ==
LOC: H.ER 17:56
DX: J03.90 Acute tonsillitis, unspecified (principal); R50.9 Fever, unspecified
CPT/HCPCS: 81003; 81025; 87070; 87086; 87430; 96372; 99282; J1100

== ENCOUNTER 2018-08-19 20:36 | Emergency (ER) | payer OTHER ==
[2018-08-19 20:37] VITALS: BMI 30.9
[2018-08-19 21:11] VITALS: TEMP 98.7; O2SAT 99
--- NOTE | 2018-08-19 22:59 | ED PDOC ---
Lower Extremity Pain/Injury Time Seen by Provider: 08/19/18 22:17 Chief Complaint (Nursing): Lower Extremity Problem/Injury Chief Complaint (Provider): Right ankle pain History Per: Patient Additional Complaint(s): 23 y/o F with no significant PMH who presents with Right ankle pain after slip and fall down 2 - 3 stairs this evening. Patient states that she twisted her ankle and "heard a crack". Is unable to bear weight. Took Ibuprofen 800mg PO x 1 at 8pm with no relief. Denies numbness/tingling or dizziness prior to fall. - Hip Description Of Injury: Tripped Past Medical History Reviewed: Historical Data, Nursing Documentation, Vital Signs Vital Signs: Last Vital Signs Temp 98.7 F 08/19/18 21:10 Pulse 71 08/19/18 21:10 Resp 16 08/19/18 21:10 BP 147/84 08/19/18 21:10 Pulse Ox 99 08/19/18 21:10 - Medical History PMH: Kidney Stones, Chronic Kidney Disease Denies: Depression, Diabetes, HTN - Family History Family History: States: Unknown Family Hx - Immunization History Hx Tetanus Toxoid Vaccination: No Hx Influenza Vaccination: No Hx Pneumococcal Vaccination: No - Home Medications Home Medications: Ambulatory Orders Medication Instructions Recorded Vit Calc,Iron,Folic 1 tab PO DAILY 03/12/17 [ Vitamins] Acetaminophen [Acetaminophen 8 650 mg PO Q8 PRN #21 tablet.er 04/26/18 Hour] Amoxicillin 875 mg PO BID #14 tablet 04/26/18 Naproxen 500 mg PO BID PRN #20 tab 04/26/18 - Allergies Allergies/Adverse Reactions: Allergies Allergy/AdvReac Type Severity Reaction Status Date / Time No Known Allergies Allergy Verified 04/26/18 18:02 Review of Systems Musculoskeletal: Positive for: Foot Pain (ankle pain) Physical Exam - Reviewed Nursing Documentation Reviewed: Yes Vital Signs Reviewed: Yes - Physical Exam Appears: Positive for: Uncomfortable Extremity: Positive for: Tenderness (mild tenderness on palpation of Right lateral maleolus. ), Capillary Refill (< 2 sec). Negative for: Normal ROM (decreased ROM with flexion and extension of Right ankle. no ecchymosis, edema or deformity. ) Neurological/Psych: Positive for: Awake, Alert, Oriented - ECG O2 Sat by Pulse Oximetry: 99 Medical Decision Making Medical Decision Making: Right ankle x-ray [place] PMPAware website queried. Pt has no recent history of narcotic prescriptions being filled. Tramadol 50mg PO x 1 ordered Right ankle x-ray: questionable lateral malleolus fracture. Pt continues to be unable to bear weight. Podiatry consulted 11:54pm: seen by podiatry, splinted and CARINA wrapped. Crutch training ordered. Lower extremity CT to r/o occult fracture ordered. 01:15am: patient endorsed to NICOLAS Antunez pending lower extremity CT scan and Podiatry to be alerted when completed. Disposition - Clinical Impression Clinical Impression: Ankle injury - Patient ED Disposition Is Patient to be Admitted: Transfer of Care (NICOLAS Antunez) Counseled Patient/Family Regarding: Studies Performed, Diagnosis, Need For Followup - Disposition Disposition: Transfer of Care Disposition Time: 01:15 Condition: STABLE Forms: [employer] (Iranian)
--- NOTE | 2018-08-20 01:02 | CP.PCM.CON ---
History of Present Illness - History of Present Illness History of Present Illness: Consult Note for Dr. Fernandez: 23 year old female patient with no PMH seen and evaluated in the ED for right ankle pain and swelling. Patient is AAO X 3. Patient states that today she missed 2-3 steps while she was carrying heavy boxes and twisted her right ankle. She states that she felt pain immediately and her right ankle got swollen from outside. She states that the pain and swelling got worse. She states that she couldn't put any weight on it. She states that the pain is 8/10 when anyone attempts to touches her right ankle or when she tries to move it upwards. Patient denies any tingling, numbness or burning sensation in his right ankle. She denies any recent fever, nausea, vomiting, cough, chills or shortness of breathing. PMH: None PSH: None Allergies: NKDA. Social Hx: Denies smoking or illicit drug use, EtOH user socially. Review of Systems - Review of Systems Review of Systems: As per HPI - Constitutional Constitutional: As Per HPI Past Patient History - Infectious Disease Hx of Infectious Diseases: None - Tetanus Immunizations Tetanus Immunization: Up to Date - Past Social History Smoking Status: Never Smoked - CARDIAC Hx Hypertension: No - RENAL Hx Chronic Kidney Disease: Yes Hx Kidney Stones: Yes - PSYCHIATRIC Hx Depression: No - SURGICAL HISTORY Hx Surgeries: No - ANESTHESIA Hx Anesthesia: No Hx Anesthesia Reactions: No Meds Allergies/Adverse Reactions: Allergies Allergy/AdvReac Type Severity Reaction Status Date / Time No Known Allergies Allergy Verified 04/26/18 18:02 Physical Exam - Constitutional Appears: Well, Non-toxic, No Acute Distress - Head Exam Head Exam: ATRAUMATIC, NORMOCEPHALIC - Extremities Exam Additional comments: Right lower extremity focused exam: VASC: DP/PT pulses palpable 2/4; cap refill <3 seconds to all digits; temp gradient warm to cool, Moderate non-pitting edema and ecchymosis noted to the left lateral wilmar-malleolar area NEURO: Gross and protective sensations are intact. DERM: Moderate non-pitting edema and ecchymosis noted to the left lateral wilmar- malleolar area. No open lesions, No clinical signs of active infection. MSK: Pain on palpating the lateral wilmar-malleolar area. Pain with ankle dorsiflexion. Muscle power cintact 5/5 to all groups. - Neurological Exam Neurological exam: Alert, Oriented x3 - Psychiatric Exam Psychiatric exam: Normal Affect, Normal Mood Results - Vital Signs Recent Vital Signs: Last Vital Signs Temp 98.7 F 08/19/18 21:10 Pulse 71 08/19/18 21:10 Resp 16 08/19/18 21:10 BP 147/84 08/19/18 21:10 Pulse Ox 99 08/19/18 23:01 Assessment & Plan - Assessment and Plan (Free Text) Assessment: 23 year old female patient with no PMH seen and evaluated in the ED for right ankle sprain Vs fracture Plan: Patient seen and evaluated at the bedside in the ED Plan discussed with Dr. Fernandez Charts and vitals reviewed: Afebrile. X-ray R Ankle: No acute osseous changes. Ordered R ankle CT scan ro R/O fractures. Posterior splint applied to the Right LE. Patient instructed to keep the Splint clean/dry/intact Patient instructed to apply ice, Rest and elevate his right lower extremity Patient instructed to stay NWB to the right LE and to ambulate using crutches. Dispensed pair of crutches. Patient expressed verbal understanding. Patient to follow up at Dr. Fernandez office upon discharge from the ED. Thank you for the consult - Date & Time Date: 08/20/18 Time: 01:02
[2018-08-20] MEDS: Naproxen 500 MG TAB PO ONE (03:36)
--- NOTE | 2018-08-20 03:52 | ED PDOC ---
- ECG O2 Sat by Pulse Oximetry: 99 - Progress ED Course And Treament: Case endorsed to designer writer from [facility] pending CT lower extremity CT scan of the right ankle without contrast. Indication: Rule out occult fracture. Technique: Axial CT scan images without contrast. Reformatted coronal and sagittal images. Findings: There is calcaneal spur formation. There is enthesophyte formation at the calcaneal insertion of the Achilles' tendon. Normal visualized distal tibia and medial malleolus. Normal visualized distal fibula and lateral malleolus. Normal tibiotalar articulation and ankle mortise. Normal visualized talus. The visualized subtalar, talonavicular, calcaneocuboid and tarsal articulations are normal Impression: No radiographic evidence of an acute pathology. Podiatry resident paged but patient does not wish to wait for call back; states he gave her follow up instructions during consult. Patient educated on findings, crutches given with demonstration on non weight bearing as previously instructed by Podiatry RICE Rx ibuprofen provided Advised follow up with Dr. Fernandez Return precuations given Disposition - Clinical Impression Clinical Impression: Ankle injury - POA Present On Arrival: None - Disposition Referrals: Pankaj Fernandez MD [Medical Doctor] - Disposition: Routine/Home Disposition Time: 03:45 Condition: IMPROVED Prescriptions: Ibuprofen [Motrin Tab] 1 tab PO Q6 PRN #20 tab PRN Reason: Pain, Moderate (4-7) Instructions: Ankle Sprain Forms: [employer] (Nepalese)
[2018-08-20 06:50] VITALS: BP 124/78; PULSE 86; RESP 18
--- NOTE | 2018-08-20 10:36 | RAD ---
PROCEDURE: Right Ankle Radiographs. HISTORY: s/p fall down 2 stairs, twisted ankle COMPARISON: No priors. FINDINGS: BONES: No acute displaced fracture. JOINTS: No dislocation. SOFT TISSUES: Soft tissue swelling. No evidence of radiopaque foreign body. OTHER FINDINGS: None. IMPRESSION: Soft tissue swelling. No acute displaced fracture or dislocation identified.
--- NOTE | 2018-08-20 10:39 | CT ---
Date of service: 08/20/2018 PROCEDURE: CT RIGHT ANKLE WITHOUT CONTRAST HISTORY: R/O occult ankle fracture COMPARISON: Right ankle radiographs 08/19/2018. TECHNIQUE: A volumetric CT acquisition through the right ankle was performed with reformatted dataset provided using multiple algorithms without contrast. Radiation dose:Total exam DLP = 318.63 mGy-cm. This CT exam was performed using one or more of the following dose reduction techniques: Automated exposure control, adjustment of the mA and/or kV according to patient size, and/or use of iterative reconstruction technique. FINDINGS: No fracture destructive bony lesion is appreciated throughout the bones of the right ankle including the hindfoot. Cortex and medullary components appear within normal limits. Trace lateral malleolar soft edema is question with this is a marginal finding. No retained radiodense foreign body or emphysema soft tissue changes are related. Isolated at tendons appear normal in density overall with no prominent local reactive soft tissue edema. Plantar fascia is unremarkable at the hindfoot. No plantar calcaneal spurring. No subluxation or dislocation apparent. Normal ankle mortise. IMPRESSION: No CT evidence of fracture, subluxation or dislocation. Borderline lateral malleolar soft tissue edema. Concordant preliminary report from [facility], 08/20/2018 at 3:39 a.m..
== END 2018-08-20 03:55 | disposition home or self-care (01) ==
LOC: H.ER 20:36
DX: S93.402A Sprain of unspecified ligament of left ankle, initial encounter (principal); W10.9XXA Fall (on) (from) unspecified stairs and steps, initial encounter; Y92.89 Other specified places as the place of occurrence of the external cause

== ENCOUNTER 2018-10-28 13:08 | Emergency (ER) | payer OTHER ==
[2018-10-28 13:08] VITALS: BMI 30.9
[2018-10-28] MEDS ORDERED: Sodium Chloride 0.9% 1,000 ML IV STA (14:14)
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
[2018-10-28 17:33] VITALS: BP 113/53; PULSE 88; RESP 17; TEMP 98.9; O2SAT 100
== END 2018-10-28 17:33 | disposition home or self-care (01) ==
LOC: H.ER 13:08
DX: S09.90XA Unspecified injury of head, initial encounter (principal); V43.62XA Car passenger injured in collision with other type car in traffic accident, initial encounter; Y92.410 Unspecified street and highway as the place of occurrence of the external cause; H53.10 Unspecified subjective visual disturbances
CPT/HCPCS: 70450; 70480; 81025; 96361; 96374; 99285; J2765; J7030